=== PATIENT | male | born 1950 | race Caucasian/White ===

== ENCOUNTER 2024-02-29 07:40 | Day surgery (SDC) | payer MEDICARE, BC ==
[~2024-02-29 07:40] MED LIST: Lactated Ringers 1,000 ML IV SCH
[2024-02-29] MEDS: Lactated Ringers 1,000 ML IV SCH (08:06)
[2024-02-29] MEDS ORDERED: Propofol 200 MG/20 ML SDV ONE ×2 (09:04→11:08)
[2024-02-29] MEDS ORDERED: fentaNYL 100 MCG/2 ML SDV ONE (09:04)
== END 2024-02-29 12:45 | disposition home or self-care (01) ==
LOC: VM.SDS 07:40
PROVIDERS: ATTEND Student in an Organized Health Care Education/Training Program
DX: Z12.11 Encounter for screening for malignant neoplasm of colon (principal); D12.2 Benign neoplasm of ascending colon; D12.3 Benign neoplasm of transverse colon; D12.5 Benign neoplasm of sigmoid colon; E66.9 Obesity, unspecified; E78.2 Mixed hyperlipidemia; I10 Essential (primary) hypertension; G47.33 Obstructive sleep apnea (adult) (pediatric); Z79.899 Other long term (current) drug therapy
CPT/HCPCS: 00811; 88305; 99100; J2704; J3010; J7120